=== PATIENT | female | born 1945 | race Two or more races ===

== ENCOUNTER 2021-07-01 08:20 | Outpatient (CLI) | payer MEDICARE, OTHER | END 2021-07-01 23:59 | disposition home or self-care (01) | LOC: WOU 08:20 | PROVIDERS: ATTEND Surgery | DX: C50.411 Malignant neoplasm of upper-outer quadrant of right female breast (principal) | CPT/HCPCS: G0463 ==

== ENCOUNTER 2021-07-15 08:30 | Outpatient (CLI) | payer MEDICARE, OTHER | END 2021-07-15 23:59 | disposition home or self-care (01) | LOC: WOU 08:30 | PROVIDERS: ATTEND Surgery | DX: C50.411 Malignant neoplasm of upper-outer quadrant of right female breast (principal); Z17.1 Estrogen receptor negative status [ER-]; E11.9 Type 2 diabetes mellitus without complications | CPT/HCPCS: G0463 ==

== ENCOUNTER 2021-07-29 08:30 | Outpatient (CLI) | payer MEDICARE, OTHER | END 2021-07-29 23:59 | disposition home or self-care (01) | LOC: WOU 08:30 | PROVIDERS: ATTEND Surgery | DX: C50.411 Malignant neoplasm of upper-outer quadrant of right female breast (principal); Z17.1 Estrogen receptor negative status [ER-] | CPT/HCPCS: G0463 ==

== ENCOUNTER 2021-08-19 13:42 | Outpatient (CLI) | payer MEDICARE, OTHER | END 2021-08-19 23:59 | disposition home or self-care (01) | LOC: LAB 13:42 | PROVIDERS: ATTEND Surgery | DX: Z01.812 Encounter for preprocedural laboratory examination (principal); Z20.822 Contact with and (suspected) exposure to COVID-19; C50.411 Malignant neoplasm of upper-outer quadrant of right female breast | CPT/HCPCS: C9803; U0003 ==

== ENCOUNTER 2021-08-26 05:46 | Inpatient (IN) | payer MEDICARE, OTHER ==
[~2021-08-26] VITALS: Ht 165.1 cm; Wt 63.5 kg
[~2021-08-26 05:46] MED LIST: ANESTHESIA TRAY IN PYXIS 1 EA TRAY MC ONE
[2021-08-26] MEDS ORDERED: GENTAMICIN 80 MG/2 ML VIAL ONE (06:53)
[2021-08-26] MEDS ORDERED: CEFAZOLIN 0 GM ONE (06:53)
[2021-08-26] MEDS ORDERED: NITROGLYCERIN PACKET 1 GM PACKET ONE (06:55)
[2021-08-26] MEDS ORDERED: ROCURONIUM BROMIDE 50 MG/5 ML ONE (07:26)
[2021-08-26] MEDS ORDERED: HYDROMORPHONE INJ 2 MG/ML DISP.SYRIN ONE (07:26)
[2021-08-26] MEDS ORDERED: METHYLENE BLUE 10 ML VIAL ONE (07:57)
[2021-08-26] MEDS ORDERED: ONDANSETRON HCL/PF 4 MG/2 ML VIAL IVP PRN (08:30)
[2021-08-26] MEDS ORDERED: ACETAMINOPHEN 325 MG TABLET PO PRN (08:30)
[2021-08-26] MEDS ORDERED: MAG HYDROX/AL HYDROX/SIMETH 30 ML UDC PO PRN (08:30)
[2021-08-26] MEDS ORDERED: MORPHINE SULFATE INJ 2 MG/ML DISP.SYRIN IV PRN ×2 (08:30→11:00)
[2021-08-26] MEDS: POLYETHYLENE GLYCOL 3350 17 GM POWD.PACK PO SCH (09:00)
[2021-08-26] MEDS: DOCUSATE SODIUM LIQ 100 MG/10 ML UDC PO SCH ×2 (09:00→18:11)
[2021-08-26] MEDS ORDERED: oxyCODONE/APAP (5/325 MG) 1 UDTAB TABLET PO PRN (11:00)
[2021-08-26] MEDS ORDERED: DEXTROSE 50%-WATER 50 ML DISP.SYRIN IV PRN (12:00)
[2021-08-26] MEDS: BLOOD SUGAR DIAGNOSTIC 1 EACH STRIP IN SCH ×3 (12:00→21:15)
[2021-08-26] MEDS ORDERED: PANT40TA2 PO (14:50)
[2021-08-26] MEDS ORDERED: ATOR10TA PO (14:50)
[2021-08-26] MEDS: INSULIN REGULAR, HUMAN 100 UNIT/ML 3 ML VIAL SQ PRN ×2 (14:50→21:17)
[2021-08-26] MEDS ORDERED: NAPR-1009 PO (14:50)
[2021-08-26] MEDS ORDERED: FERR325T23 PO (14:50)
[2021-08-26] MEDS ORDERED: METF-440 PO (14:50)
[2021-08-26] MEDS ORDERED: TRAM50TA2 PO (14:50)
[2021-08-26 20:00] VITALS: BP 104/53
[2021-08-26 20:34] VITALS: BP 104/53
[2021-08-27] MEDS: BLOOD SUGAR DIAGNOSTIC 1 EACH STRIP IN SCH (06:46)
[2021-08-27] MEDS: INSULIN REGULAR, HUMAN 100 UNIT/ML 3 ML VIAL SQ PRN (06:47)
[2021-08-27 07:01] LABS: BASOPHILS % (AUTO) 0.2 % (0.0-2.0); EOSINOPHILS % (AUTO) 0.6 % (0.0-6.0); HEMATOCRIT 34 % (33-45); HEMOGLOBIN 11.2 g/dL (11.5-14.8); LYMPHOCYTES # (AUTO) 2.5 K/uL (0.8-4.8); MEAN CORPUSCULAR HGB CONC 33 g/dl (31.0-36.0); MEAN CORPUSCULAR VOLUME 89 fL (82-100); MONOCYTES % (AUTO) 8.8 % (2.0-12.0); NEUTROPHILS # (AUTO) 7.5 K/uL (1.8-8.9); NEUTROPHILS % (AUTO) 67.4 % (43.0-81.0); PLATELET COUNT (AUTO) 225 K/uL (150-450); RED BLOOD CELL COUNT(AUTO) 3.77 MIL/uL (4.0-5.2); WHITE BLOOD COUNT (AUTO) 11.1 K/uL (4.3-11.0)
[2021-08-27 07:04] LABS: ALANINE AMINOTRANSFERASE 14 U/L (12-78); ALBUMIN 2.8 g/dL (3.4-5.0); ALKALINE PHOSPHATASE 93 U/L (46-116); ASPARTATE AMINOTRANSFERASE 14 U/L (15-37); BILIRUBIN,TOTAL 0.6 mg/dL (0.2-1.0); CALCIUM, SERUM 8.6 mg/dL (8.5-10.1); CARBON DIOXIDE 28 mmol/L (21-32); CHLORIDE 107 mmol/L (98-107); CREATININE 0.8 mg/dL (0.6-1.3); GLUCOSE 90 mg/dL (74-106); MAGNESIUM 2.1 mg/dL (1.8-2.4); PHOSPHORUS 3.5 mg/dL (2.5-4.9); POTASSIUM 4.6 mmol/L (3.5-5.1); SODIUM SERUM 139 mmol/L (136-145); TOTAL PROTEIN, SERUM 6.3 g/dL (6.4-8.2); UREA NITROGEN, BLOOD 15 mg/dL (7-18)
[2021-08-27 08:00] VITALS: BP 119/65
[2021-08-27] MEDS: DOCUSATE SODIUM LIQ 100 MG/10 ML UDC PO SCH (08:47)
[2021-08-27] MEDS: POLYETHYLENE GLYCOL 3350 17 GM POWD.PACK PO SCH (08:47)
[2021-08-27] MEDS ORDERED: TRAM50TA2 PO (10:59)
== END 2021-08-27 12:30 | disposition home or self-care (01) | DRG 581 ==
LOC: DS 05:46 → MED 05:47
PROVIDERS: ADMIT Internal Medicine; ATTEND Internal Medicine
PROC: 0HTT0ZZ Resection of Right Breast, Open Approach (ICD-10-PCS; principal; 2021-08-26)
PROC: 07B50ZZ Excision of Right Axillary Lymphatic, Open Approach (ICD-10-PCS; 2021-08-26)
DX: C50.911 Malignant neoplasm of unspecified site of right female breast (principal); E11.9 Type 2 diabetes mellitus without complications; I10 Essential (primary) hypertension; Z92.21 Personal history of antineoplastic chemotherapy
CPT/HCPCS: 36415; 80053-TC; 82962-TC; 83735-TC; 84100-TC; 85025-TC; 86850-TC; 87081-TC; 88307-TC; 88309-TC; 88331-TC; 88360; G0378; J0690; J1100; J1170; J1580; J1815; J2405; J2704; J3490; J7030; Q9968

== ENCOUNTER 2021-09-03 10:42 | Outpatient (CLI) | payer MEDICARE, OTHER ==
[~2021-09-03 10:42] MED LIST changes: -ANESTHESIA TRAY IN PYXIS 1 EA TRAY MC ONE; +ATOR10TA PO; +FERR325T23 PO; +METF-440 PO; +NAPR-1009 PO; +PANT40TA2 PO; +TRAM50TA2 PO
== END 2021-09-03 23:59 | disposition home or self-care (01) ==
LOC: WOU 10:42
PROVIDERS: ATTEND Surgery
DX: Z48.3 Aftercare following surgery for neoplasm (principal); C50.411 Malignant neoplasm of upper-outer quadrant of right female breast; Z17.1 Estrogen receptor negative status [ER-]; E11.9 Type 2 diabetes mellitus without complications
CPT/HCPCS: G0463

== ENCOUNTER 2021-09-16 08:20 | Outpatient (CLI) | payer MEDICARE, OTHER | END 2021-09-16 23:59 | disposition home health service (06) | LOC: WOU 08:20 | PROVIDERS: ATTEND Surgery | DX: Z48.3 Aftercare following surgery for neoplasm (principal); C50.411 Malignant neoplasm of upper-outer quadrant of right female breast; Z17.1 Estrogen receptor negative status [ER-]; E11.9 Type 2 diabetes mellitus without complications | CPT/HCPCS: G0463 ==

== ENCOUNTER 2021-10-14 08:32 | Outpatient (CLI) | payer MEDICARE, OTHER | END 2021-10-14 23:59 | disposition home or self-care (01) | LOC: WOU 08:32 | PROVIDERS: ATTEND Surgery | DX: C50.411 Malignant neoplasm of upper-outer quadrant of right female breast (principal); Z17.1 Estrogen receptor negative status [ER-]; M62.838 Other muscle spasm; E11.9 Type 2 diabetes mellitus without complications | CPT/HCPCS: G0463 ==

== ENCOUNTER 2022-04-07 08:54 | Outpatient (CLI) | payer MEDICARE, OTHER | END 2022-04-07 23:59 | disposition home or self-care (01) | LOC: WOU 08:54 | PROVIDERS: ATTEND Surgery | DX: C50.411 Malignant neoplasm of upper-outer quadrant of right female breast (principal); Z90.11 Acquired absence of right breast and nipple; Z17.1 Estrogen receptor negative status [ER-] | CPT/HCPCS: G0463 ==

== ENCOUNTER 2022-08-18 08:47 | Outpatient (CLI) | payer MEDICARE, OTHER | END 2022-08-18 23:59 | disposition home or self-care (01) | LOC: WOU 08:47 | PROVIDERS: ATTEND Surgery | DX: C50.411 Malignant neoplasm of upper-outer quadrant of right female breast (principal); Z90.11 Acquired absence of right breast and nipple; Z17.1 Estrogen receptor negative status [ER-] | CPT/HCPCS: G0463 ==